=== PATIENT | male | born 1980 | race Caucasian/White ===

== ENCOUNTER 2017-01-12 17:13 | Emergency (ER) | payer OTHER ==
[~2017-01-12] VITALS: Ht 182.9 cm; Wt 102.1 kg
[~2017-01-12 17:13] MED LIST: ACET-704 PO; CEPH-263 PO; CYCL-331 PO; ESOM20CA PO; HYDR-971 PO; KETO10TA PO; MELO15TA23 PO; SULF1TAB23 PO; SULF1TAB24 PO
[2017-01-12 17:29] VITALS: BP 128/89
[2017-01-12] MEDS ORDERED: IBUP800T19 PO (18:06)
--- NOTE | 2017-01-12 18:06 | PHYS DOC ---
Past History Past Medical History: GERD, Other Past Surgical History: Appendectomy, Lumbar Laminectomy, Other Alcohol Use: None Drug Use: None Adult General Chief Complaint Chief Complaint: KNEE INJURY HPI HPI Patient is a 36 year old M who presents with left knee pain. Patient states he was doing dishes and went to turn around and pivoted on his left knee in which he had excruciating pain to the medial side. Patient states is extremely tender to walk on it and it feels loose. Patient denies any significant trauma to the knee. Patient denies any other complaints. Patient has no swelling to the knee. Patient has decreased range of motion secondary to pain. Patient no previous knee injuries. Review of Systems Review of Systems GEN: Denies fevers, chills, sweats HEENT: Denies blurred vision, sore throat CV: Denies chest pain RESP: Denies shortness of air, cough GI: Denies n/v/d NEURO: Denies confusion, dizziness MSK: Left knee pain Allergies Allergies Allergies Coded Allergies Type Severity Reaction Last Updated Verified No Known Drug Allergies 03/03/16 No Physical Exam Physical Exam GEN.: No apparent distress. Alert and oriented. HEENT: Head is normocephalic, atraumatic NECK: Supple. LUNGS: CTAB. HEART: RRR, S1, S2 present. Peripheral pulses intact ABDOMEN: Soft, nontender. Positive bowel sounds. EXTREMITIES: Without any cyanosis. Positive tenderness to palpation over the medial joint space of the left knee, decreased range of motion secondary to pain , crepitus with range of motion NEUROLOGIC: Normal speech, normal tone PSYCHIATRIC: Normal affect, normal mood. SKIN: No ulcerations Current Patient Data Vital Signs Vital Signs Date Time Temp Pulse Resp B/P (MAP) Pulse Ox O2 Delivery O2 Flow Rate FiO2 01/12/17 17:29 98.9 88 20 98 Room Air EKG EKG [] Radiology/Procedures Radiology/Procedures X-ray left knee shows no obvious fracture [] Course & Med Decision Making Course & Med Decision Making Pertinent Labs and Imaging studies reviewed. (See chart for details) ED course: Patient was seen and examined and x-ray of the left knee was ordered 1810: Updated patient on results of the left knee x-ray and recommended he follow-up with PCP for further evaluation and management of his left knee with possible need for an MRI. Discussed with patient the plan to place him in a knee immobilizer and given crutches and have him rest, elevate, ice his left knee. MDM: After reviewing the chart, CC/HPI/PMH, physical exam, [radiological results], I do not believe the patient sustained an obvious fracture to his left knee warranting further workup and/or admission at this time. Patient has a possibility of a ligamentous injury or a cartilaginous tear that will need to be followed by his family doctor as an outpatient. Patient be placed in a knee immobilizer and given crutches and instructions for elevating/ice/compression/ rest of the left knee. Patient is stable for discharge. Post knee immobilizer evaluation shows the patient is neurovascular intact. Additional verbal discharge instructions were provided to the patient and that if symptoms get worse or any new symptoms arise that are worrisome to the patient he is to return to the emergency room immediately [] Dragon Disclaimer Dragon Disclaimer This chart was dictated in whole or in part using Voice Recognition software in a busy, high-work load, and often noisy Emergency Department environment. It may contain unintended and wholly unrecognized errors or omissions. Departure Departure: Impression: Primary Impression: Left knee sprain Disposition: HOME, SELF-CARE Condition: IMPROVED Referrals: PCP,CORINNE (PCP) Patient Instructions: Knee Pain, [id number] Additional Instructions: Please follow up with her family doctor next one to 2 days, he may need an MRI to further evaluate a cartilage or ligament tear Provided prescription for crutches Scripts Ibuprofen (IBUPROFEN) 800 Mg Tablet 1 TAB PO TID, #30 TAB Prov: JOSUÉ MCDONALD DO 01/12/17 Problem Qualifiers Primary Impression: Left knee sprain Encounter type: initial encounter Involved ligament of knee: medial collateral ligament Qualified Codes: S83.412A - Sprain of medial collateral ligament of left knee, initial encounter JOSUÉ MCDONALD DO Jan 12, 2017 18:06
--- NOTE | 2017-01-13 08:12 | RAD ---
3 views left knee radiograph 01/12/2017. Clinical indication: Left knee pain. Comparison: None. Findings: No acute fracture or traumatic malalignment. 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 No joint effusion. Impression: No acute osseous abnormality.
== END 2017-01-12 18:19 | disposition home or self-care (01) ==
LOC: ER 17:13
DX: S83.92XA Sprain of unspecified site of left knee, initial encounter (principal); K21.9 Gastro-esophageal reflux disease without esophagitis; X58.XXXA Exposure to other specified factors, initial encounter; Y93.89 Activity, other specified; Y99.8 Other external cause status; Y92.89 Other specified places as the place of occurrence of the external cause
CPT/HCPCS: 29505; 73562; 99284-25

== ENCOUNTER 2017-03-31 00:43 | Emergency (ER) | payer OTHER ==
[~2017-03-31] VITALS: Ht 182.9 cm; Wt 103.6 kg
[~2017-03-31 00:43] MED LIST changes: +IBUP800T19 PO
[2017-03-31 00:45] VITALS: BP 141/81
[2017-03-31] MEDS ORDERED: MUPI15CR TP (01:09)
[2017-03-31] MEDS ORDERED: HYDR-2758 PO (01:09)
[2017-03-31] MEDS ORDERED: SULF1TAB24 PO (01:09)
--- NOTE | 2017-03-31 01:10 | PHYS DOC ---
Past History Past Medical History: GERD, Other Past Surgical History: Appendectomy, Lumbar Laminectomy, Other Smoking: Cigarettes, Greater than 1 pack/day Alcohol Use: None Drug Use: None Adult General Chief Complaint Chief Complaint: ABSCESS HPI HPI Patient is a pleasant 36-year-old male who was seen and treated for a suspected abscess and cellulitis of his right lower groin. He's been doing well with improvement of his symptoms. He says that this wound opened up several days ago and been draining. He is come in today because he wanted it looked at was concerned that it was still open and draining and causing more pain as he walked. He denies any fever, abdominal pain, penile discharge, scrotal swelling or pain within the scrotum or testicles. Patient denies any localized trauma to the area, denies any nausea, vomiting or diarrhea. Review of Systems Review of Systems Constitutional: Denies fever or chills [] Eyes: Denies change in visual acuity, redness, or eye pain [] HENT: Denies nasal congestion or sore throat [] Respiratory: Denies cough or shortness of breath [] Cardiovascular: No additional information not addressed in HPI [] GI: Denies abdominal pain, nausea, vomiting, bloody stools or diarrhea [] : Denies dysuria or hematuria [] Musculoskeletal: Denies back pain or joint pain [] Integument: Patient does complain of increased redness localized swelling around the area described as abscess. Neurologic: Denies headache, focal weakness or sensory changes [] Allergies Allergies Allergies Coded Allergies Type Severity Reaction Last Updated Verified No Known Drug Allergies 03/03/16 No Physical Exam Physical Exam Vital signs recorded on the chart patient afebrile patient has a mild hypertension. Constitutional: Well developed, well nourished, no acute distress, non-toxic appearance. [] Abdomen: Bowel sounds normal, soft, no tenderness, no masses, no pulsatile masses. exam demonstrates normal external male genitalia. On the right skin crease below the scrotum patient is a very small open draining wound measuring about 0.6 cm. It is not actively draining any purulent discharge. Patient has minimal erythema around the edges of the tissue. There is minimal soft tissue induration.[] Skin: Warm, dry, patient's skin does demonstrate some erythema with no evidence of vesicles or satellite lesions. Brisk capillary refill. Patient scrotum does not demonstrate any signs of foreign years gangrene Extremities: No tenderness, no cyanosis, no clubbing, ROM intact, no edema. [] Neurologic: Alert and oriented X 3, normal motor function, normal sensory function, no focal deficits noted. [] Psychologic: Affect normal, judgement normal, mood normal. [] EKG EKG [] Radiology/Procedures Radiology/Procedures [] Course & Med Decision Making Course & Med Decision Making Pertinent Labs and Imaging studies reviewed. (See chart for details) Impression is a small abscess has ruptured spontaneously. Although there is no clear signs of abscess at this time and nothing noted on physical exam that requires incision and drainage, we talked about wound care in the future patient was placed back on antibiotics because there is some concomitant cellulitis distal to this. Open wound. My thought is that this patient will need to go in to a wound clinic specifically at [facility] to help manage and improve the healing of this wound. [] Dragon Disclaimer Dragon Disclaimer This chart was dictated in whole or in part using Voice Recognition software in a busy, high-work load, and often noisy Emergency Department environment. It may contain unintended and wholly unrecognized errors or omissions. Departure Departure: Impression: Primary Impression: Cellulitis and abscess Disposition: 01 HOME, SELF-CARE Condition: STABLE Referrals: PCP,CORINNE (PCP) Patient Instructions: Cellulitis, Wound Care, [id number] Additional Instructions: My discharge plan Follow up: In addition patient is asked to followup with their primary doctor, within a week for followup examination and to address patient's ongoing medical conditions. Because patient does not have a regular medical doctor, a local physician Resource Sheet will be provided to establish care primary care. Patient is advised that in the Emergency Department primary complaints are addressed and only in light of known signs and symptoms. Patient should return immediately to the emergency department if new signs and symptoms develop or patient's condition worsens in any way. At time of discharge patient was in stable condition and had verbalized understanding of the discharge instructions. Also be given the information about the wound care clinic to help him facilitate treatment of this particular wound. Scripts Hydrocodone Bit/Acetaminophen (HYDROCODONE-APAP 5-325 ) 1 Each Tablet 1 TAB PO PRN Q6HRS Y for PAIN for 3 Days, #10 TAB 0 Refills Prov: TIKA DOUGHERTY MD 03/31/17 Mupirocin Calcium (BACTROBAN) 15 Gm Cream..g. 1 RAFA TP TID, #30 GM Prov: TIKA DOUGHERTY MD 03/31/17 Sulfamethoxazole/Trimethoprim (BACTRIM DS TABLET) 1 Each Tablet 1 TAB PO BID, #20 TAB Prov: TIKA DOUGHERTY MD 03/31/17 TIKA DOUGHERTY MD Mar 31, 2017 01:10
[2017-03-31] MEDS ORDERED: SMZ/TMP 800/160MG TABLET. PO ONE (01:30)
[2017-03-31] MEDS ORDERED: HYDROcodone/APAP 5/325MG 1 TAB TABLET PO ONE (01:30)
== END 2017-03-31 01:19 | disposition home or self-care (01) ==
LOC: ER 00:43
DX: L02.214 Cutaneous abscess of groin (principal); L03.314 Cellulitis of groin; K21.9 Gastro-esophageal reflux disease without esophagitis; F17.210 Nicotine dependence, cigarettes, uncomplicated
CPT/HCPCS: 99283

== ENCOUNTER 2017-05-20 18:53 | Emergency (ER) | payer OTHER ==
[~2017-05-20] VITALS: Ht 182.9 cm; Wt 104.3 kg
[~2017-05-20 18:53] MED LIST changes: +HYDR-2758 PO; +MUPI15CR TP
[2017-05-20] MEDS ORDERED: HYDROcodone/APAP 5/325MG 1 TAB TABLET PO ONE (20:00)
[2017-05-20] MEDS ORDERED: IV NORMAL SALINE 1,000ML 1,000 ML IV ONE (20:00)
[2017-05-20 20:27] LABS: BASO # 0.1 x10^3/uL (0.0-0.2); BASO % 1 % (0-3); EOS # 0.1 x10^3/uL (0.0-0.7); EOS % 0 % (0-3); HEMOGLOBIN 15.4 g/dL (13.0-17.5); LYMPH # 1.1 x10^3/uL (1.0-4.8); LYMPH % 7 % (24-48); MEAN CORPUSCULAR HEMOGLOBIN 32 pg (25-35); MEAN CORPUSCULAR HGB CONC 35 g/dL (31-37); MEAN CORPUSCULAR VOLUME 90 fL (79-100); MONO % 6 % (0-9); NEUT # 14.1 x10^3uL (1.8-7.7); NEUT % 86 % (31-73); PLATELET COUNT 186 x10^3/uL (140-400); RED BLOOD COUNT 4.89 x10^6/uL (4.30-5.70); RED CELL DISTRIBUTION WIDTH 13.2 % (11.5-14.5); WHITE BLOOD COUNT 16.4 x10^3/uL (4.0-11.0)
[2017-05-20 20:35] LABS: CALCIUM 9.4 mg/dL (8.5-10.1); CREATININE 1.2 mg/dL (0.7-1.3); DIRECT BILIRUBIN 0.1 mg/dL (0.0-0.2); GFR 69.3; TOTAL BILIRUBIN 0.2 mg/dL (0.2-1.0); TOTAL PROTEIN 7.5 g/dL (6.4-8.2)
[2017-05-20] MEDS ORDERED: IOHEXOL 300 MG/ML 75 ML VIAL. IV ONE (21:45)
[2017-05-20] MEDS ORDERED: CONTRAST GIVEN MC PRN (21:45)
[2017-05-20 22:22] LABS: % BANDS 4 % (0-9); % EOS 2 % (0-5); % LYMPHS 6 % (24-48); % MONOS 4 % (0-10); % SEGS 84 % (35-66)
[2017-05-20 22:24] LABS: PLT ESTIMATE ADEQUATE (ADEQUATE)
[2017-05-20] MEDS ORDERED: IBUPROFEN 400 MG TABLET. PO ONE (23:15)
--- NOTE | 2017-05-20 23:35 | RAD ---
INDICATION: Omni 300, 75ml IV. Facial pain w/tachycardia. Fever. Hx of laceration to central forehead requiring stitches. No previous exams for comparison COMPARISON: None. TECHNIQUE: Axial CT images obtained through the face with contrast. One or more of the following individualized dose reduction techniques were utilized for this examination: 1. Automated exposure control; 2. Adjustment of the mA and/or kV according to patient size; 3. Use of iterative reconstruction technique. FINDINGS: Mastoid air cells are well aerated. Sphenoid sinus, ethmoid air cells, frontal sinus and maxillary sinuses are well aerated. No definite acute fracture or dislocation. Mild nasal septal bowing to the left. No definite drainable fluid collection within the face. There is some subcutaneous induration of the fat anterior to the frontal region. IMPRESSION: Subcutaneous induration of the fat anterior to the fundal region with swelling in the area. Differential considerations include infectious causes such as cellulitis as well as soft tissue hematoma. No definite drainable component at this time. Electronically signed by: Mike Haynes MD (05/20/2017 11:32 PM) [facility]
[2017-05-20 23:50] VITALS: BP 139/75
[2017-05-20] MEDS ORDERED: IBUP400T18 PO (23:50)
[2017-05-20] MEDS ORDERED: CEPH-263 PO (23:50)
--- NOTE | 2017-05-20 23:50 | PHYS DOC ---
Past History Past Medical History: GERD Past Surgical History: Appendectomy, Lumbar Laminectomy, Other Smoking: Cigarettes, Greater than 1 pack/day Alcohol Use: Occasionally Drug Use: None Adult General Chief Complaint Chief Complaint: FEVER HPI HPI 36-year-old male presenting with left facial pain and reported fevers at home. He denies any new rashes. The pain in his left face is sharp mild intermittent and without alleviating factors. He denies vision changes. He otherwise has been able to eat without difficulty. Review of systems is negative for chest pain shortness of breath neck swelling stridor tongue swelling or trismus. He denies neck stiffness confusion cyanosis lethargy or vision changes. All other review of systems is negative unless otherwise noted in history of present illness. ED course: 36-year-old gentleman presenting with left facial pain. Upon arrival the patient had significant tachycardia but was not febrile in the emergency department. IV established blood work sent. IV saline given. Pain medication administered. On examination the patient's face is not any erythema or rash to speak of. He reports face and the second branch of the trigeminal nerve distribution. Blood work shows leukocytosis of 16,000. Given the patient's tachycardia and leukocytosis with facial pain CT of the maxillofacial region was obtained which showed evidence of cellulitis on CT though clinically on examination the patient states he does not have evidence of cellulitis. Given the tachycardia and a leukocytosis with findings on CT the patient was discharged home with oral Keflex to follow-up with his doctor next 2-3 days. The patient was then discharged home in stable condition to follow up with their primary care physician over the next 2-3 days. They were to return if their symptoms worsened or if they were concerned for any reason. [id number] discharge instructions and return precautions were given. Patient's questions were answered to their satisfaction. Patient is comfortable plan. Review of Systems Review of Systems SEE ABOVE. Current Medications Current Medications Current Medications Medications (Trade) Dose Ordered Sig/Danita Start Time Stop Time Status Last Admin Dose Admin Acetaminophen/ Hydrocodone Bitart (Lortab 5/325) 2 tab 1X ONCE 05/20/17 20:00 05/20/17 20:01 DC 05/20/17 20:03 2 TAB Ibuprofen (Motrin) 400 mg 1X ONCE 05/20/17 23:15 05/20/17 23:36 DC 05/20/17 23:18 400 MG Info (Do NOT chart on this entry -- for MONITORING) 1 each PRN DAILY PRN 05/20/17 21:45 05/22/17 21:44 Iohexol (Omnipaque 300 Mg/ml) 75 ml 1X ONCE 05/20/17 21:45 05/20/17 21:46 DC 05/20/17 21:45 75 ML Sodium Chloride 1,000 ml @ 1,000 mls/hr 1X ONCE 05/20/17 20:00 05/20/17 20:59 DC 05/20/17 20:03 1,000 MLS/HR Allergies Allergies Allergies Coded Allergies Type Severity Reaction Last Updated Verified No Known Drug Allergies 03/03/16 No Physical Exam Physical Exam SEE ABOVE Constitutional: Well developed, well nourished, no acute distress, non-toxic appearance. [] HENT: Normocephalic, atraumatic, bilateral external ears normal, oropharynx moist, no oral exudates, nose normal. []No rashes on the face. Eyes: PERRLA, EOMI, conjunctiva normal, no discharge. [] Neck: Normal range of motion, no tenderness, supple, no stridor. [] Cardiovascular:Heart rate regular rhythm, no murmur [] Lungs & Thorax: Bilateral breath sounds clear to auscultation [] Abdomen: Bowel sounds normal, soft, no tenderness, no masses, no pulsatile masses. [] Skin: Warm, dry, no erythema, no rash. [] Back: No tenderness, no CVA tenderness. [] Extremities: No tenderness, no cyanosis, no clubbing, ROM intact, no edema. [] Neurologic: Alert and oriented X 3, normal motor function, normal sensory function, no focal deficits noted. [] Psychologic: Affect normal, judgement normal, mood normal. [] Current Patient Data Vital Signs Vital Signs Date Time Temp Pulse Resp B/P (MAP) Pulse Ox O2 Delivery O2 Flow Rate FiO2 05/20/17 19:06 99.0 126 20 99 Room Air Lab Results Laboratory Tests Test 05/20/17 19:45 White Blood Count 16.4 x10^3/uL (4.0-11.0) H Red Blood Count 4.89 x10^6/uL (4.30-5.70) Hemoglobin 15.4 g/dL (13.0-17.5) Hematocrit 44.0 % (39.0-53.0) Mean Corpuscular Volume 90 fL (79-100) Mean Corpuscular Hemoglobin 32 pg (25-35) Mean Corpuscular Hemoglobin Concent 35 g/dL (31-37) Red Cell Distribution Width 13.2 % (11.5-14.5) Platelet Count 186 x10^3/uL (140-400) Neutrophils (%) (Auto) 86 % (31-73) H Lymphocytes (%) (Auto) 7 % (24-48) L Monocytes (%) (Auto) 6 % (0-9) Eosinophils (%) (Auto) 0 % (0-3) Basophils (%) (Auto) 1 % (0-3) Neutrophils # (Auto) 14.1 x10^3uL (1.8-7.7) H Lymphocytes # (Auto) 1.1 x10^3/uL (1.0-4.8) Monocytes # (Auto) 1.0 x10^3/uL (0.0-1.1) Eosinophils # (Auto) 0.1 x10^3/uL (0.0-0.7) Basophils # (Auto) 0.1 x10^3/uL (0.0-0.2) Segmented Neutrophils % 84 % (35-66) H Band Neutrophils % 4 % (0-9) Lymphocytes % 6 % (24-48) L Monocytes % 4 % (0-10) Eosinophils % 2 % (0-5) Platelet Estimate Adequate (ADEQUATE) Sodium Level 142 mmol/L (136-145) Potassium Level 4.0 mmol/L (3.5-5.1) Chloride Level 107 mmol/L (98-107) Carbon Dioxide Level 26 mmol/L (21-32) Anion Gap 9 (6-14) Blood Urea Nitrogen 17 mg/dL (8-26) Creatinine 1.2 mg/dL (0.7-1.3) Estimated GFR (Cockcroft-Gault) 69.3 Glucose Level 103 mg/dL (70-99) H Calcium Level 9.4 mg/dL (8.5-10.1) Total Bilirubin 0.2 mg/dL (0.2-1.0) Direct Bilirubin 0.1 mg/dL (0.0-0.2) Aspartate Amino Transferase (AST) 21 U/L (15-37) Alanine Aminotransferase (ALT) 55 U/L (16-63) Alkaline Phosphatase 62 U/L (46-116) Total Protein 7.5 g/dL (6.4-8.2) Albumin 4.0 g/dL (3.4-5.0) EKG EKG [] Radiology/Procedures Radiology/Procedures [] Course & Med Decision Making Course & Med Decision Making Pertinent Labs and Imaging studies reviewed. (See chart for details) [] Dragon Disclaimer Dragon Disclaimer This electronic medical record was generated, in whole or in part, using a voice recognition dictation system. Departure Departure: Impression: Primary Impression: Cellulitis Disposition: HOME, SELF-CARE Condition: STABLE Referrals: JEOVANNY TRAVIS MD (PCP) Patient Instructions: Cellulitis, [id number] Additional Instructions: Thank you for allowing us to participate in your care today. Followup with your primary care physician in 3 days if your symptoms do not improve. Call your Primary Doctor tomorrow and inform them of your visit today. If you do not have a primary care provider you can ask for a list of our primary care providers. Return to the emergency department you have any new or concerning findings. This should be evaluated by the primary care physician and any necessary consulting services for continued management within a few days after discharge. Return to emergency room if you have any new or concerning symptoms including but not limited to fever, chills, nausea, vomiting, intractable pain, any new rashes, chest pain, shortness of air, uncontrolled bleeding, difficulty breathing, and/or vision loss. Scripts Ibuprofen (IBUPROFEN) 400 Mg Tablet 1 TAB PO PRN Q8HRS Y for PAIN, #20 TAB Prov: ABE ARAUJO MD 05/20/17 Cephalexin (KEFLEX) 250 Mg Capsule 1 CAP PO QID, #28 CAP Prov: ABE ARAUJO MD 05/20/17 ABE ARAUJO MD May 20, 2017 23:50
== END 2017-05-20 23:51 | disposition home or self-care (01) ==
LOC: ER 18:53
DX: L03.211 Cellulitis of face (principal); K21.9 Gastro-esophageal reflux disease without esophagitis; F17.210 Nicotine dependence, cigarettes, uncomplicated
CPT/HCPCS: 36415; 70487; 80048; 80076; 85007; 85025; 96360; 96361; 99285; Q9967; J7030

== ENCOUNTER → 2018-05-15 | Outpatient (CLI) | payer OTHER ==
[~2018-05-15] MED LIST changes: +HYDR-2155 PO; -HYDR-2758 PO; +HYDR-3165 PO; -HYDR-971 PO; +IBUP400T18 PO
--- NOTE | 2018-05-15 16:04 | RAD ---
Chest, 2 views, 05/15/2018: HISTORY: Chest pain, shortness of breath Comparison is made to a study from 11/27/2015. The heart size and pulmonary vascularity are normal. There is minimal parenchymal scarring laterally in the right upper chest. No acute infiltrate is seen. There is no evidence of pleural fluid. IMPRESSION: No acute cardiopulmonary abnormality is detected. Electronically signed by: Momo Cox MD (05/15/2018 4:00 PM) [facility]
== END | disposition home or self-care (01) ==
LOC: RAD 11:34
PROVIDERS: ATTEND Internal Medicine Pulmonary Disease
DX: J98.4 Other disorders of lung (principal)
CPT/HCPCS: 71046

== ENCOUNTER 2021-01-29 11:41 | Emergency (ER) | payer OTHER ==
[~2021-01-29] VITALS: Ht 180.3 cm; Wt 108.8 kg
--- NOTE | 2021-01-29 12:18 | PHYS DOC ---
Past History Past Medical History: GERD Past Surgical History: Appendectomy, Lumbar Laminectomy, Other Smoking: Cigarettes, Greater than 1 pack/day Alcohol Use: Rarely Drug Use: None General Adult EDM: Chief Complaint: GROIN PAIN HPI: HPI: 40-year-old male presents with left testicular pain. The patient wears a five- point harness for work. He was working yesterday when his weight was suspended with the harness and it pinched the left testicle into the harness. Patient had pain and continues to have pain this morning. He went to the [facility] clinic and they recommended he come to the emergency room for testicular ultrasound. Patient had one episode of dysuria but his urination afterward has not been painful. He has not noticed any blood. He has no other complaints this time. Review of Systems: Review of Systems: Constitutional: Denies fever or chills Eyes: Denies change in visual acuity HENT: Denies nasal congestion or sore throat Respiratory: Denies cough or shortness of breath Cardiovascular: Denies chest pain or edema GI: Denies abdominal pain, nausea, vomiting, bloody stools or diarrhea : Denies dysuria. Left testicle pain Musculoskeletal: Denies back pain or joint pain Integument: Denies rash Neurologic: Denies headache, focal weakness or sensory changes Endocrine: Denies polyuria or polydipsia Lymphatic: Denies swollen glands Psychiatric: Denies depression or anxiety Allergies: Allergies: Allergies Coded Allergies Type Severity Reaction Last Updated Verified No Known Drug Allergies 01/29/21 No Physical Exam: PE: Constitutional: Well developed, well nourished, obese, no acute distress, non-t oxic appearance. [] HENT: Normocephalic, atraumatic, bilateral external ears normal, oropharynx moist, no oral exudates, nose normal. [] Eyes: PERRLA, EOMI, conjunctiva normal, no discharge. [] Neck: Normal range of motion, no tenderness, supple, no stridor. [] Cardiovascular:Heart rate regular rhythm, no murmur [] Lungs & Thorax: Bilateral breath sounds clear to auscultation [] Abdomen: Bowel sounds normal, soft, no tenderness, no masses, no pulsatile masses. [] Skin: Warm, dry, no erythema, no rash. [] Back: No tenderness, no CVA tenderness. [] Extremities: No tenderness, no cyanosis, no clubbing, ROM intact, no edema. [] Neurologic: Alert and oriented X 3, normal motor function, normal sensory function, no focal deficits noted. [] Psychologic: Affect normal, judgement normal, mood normal. : Circumcised, bilateral descended testicles, left testicular tenderness and diameter greater than right. No ecchymosis. [] Current Patient Data: Vital Signs: Vital Signs Date Time Temp Pulse Resp B/P (MAP) Pulse Ox O2 Delivery O2 Flow Rate FiO2 01/29/21 11:51 97.3 73 16 137/82 96 Room Air EKG: EKG: [] Radiology/Procedures: Radiology/Procedures: [] Impressions: INDICATION: Reason: LT TESTICULAR TRAUMA 01-28-21 / [facility]. Instructions: / History: COMPARISON: None. TECHNIQUE: Grayscale, color and spectral doppler ultrasound images obtained of the scrotum. FINDINGS: Right Testicle: 54 x 34 x 25 mm. Vascular flow is identified. Left Testicle: 56 x 37 x 23 mm. Vascular flow is identified. Small hydroceles. IMPRESSION: * Vascular flow is identified to the bilateral testicles. No evidence of testicular rupture. * Small hydrocele Electronically signed by: Angi Haynes MD (01/29/2021 1:00 PM) [id number] DICTATED AND SIGNED BY: ANGI HAYNES MD DATE: 01/29/21 1258 CC: GEN REID DO; PCP,NO ~MTH0 0 Heart Score: C/O Chest Pain: N/A Risk Factors: Risk Factors: DM, Current or recent (<one month) smoker, HTN, HLP, family history of CAD, obesity. Risk Scores: Score 0 - 3: 2.5% MACE over next 6 weeks - Discharge Home Score 4 - 6: 20.3% MACE over next 6 weeks - Admit for Clinical Observation Score 7 - 10: 72.7% MACE over next 6 weeks - Early Invasive Strategies Course & Med Decision Making: Course & Med Decision Making Pertinent Labs and Imaging studies reviewed. (See chart for details) The patient's ultrasound was negative for torsion or other significant finding except for small hydrocele. I believe his discomfort is just due to contusion. He is stable for discharge at this time. [] Dragon Disclaimer: Dragon Disclaimer: This electronic medical record was generated, in whole or in part, using a voice recognition dictation system. Departure Departure: Impression: Primary Impression: Contusion of testicle Qualified Codes: S30.22XA - Contusion of scrotum and testes, initial encounter Disposition: HOME / SELF CARE / HOMELESS Condition: STABLE Referrals: PCP,NO (PCP) Patient Instructions: Contusion, [id number] GEN REID DO Jan 29, 2021 12:18
--- NOTE | 2021-01-29 13:03 | RAD ---
INDICATION: Reason: LT TESTICULAR TRAUMA 01-28-21 / [facility] Instructions: / History: COMPARISON: None. TECHNIQUE: Grayscale, color and spectral doppler ultrasound images obtained of the scrotum. FINDINGS: Right Testicle: 54 x 34 x 25 mm. Vascular flow is identified. Left Testicle: 56 x 37 x 23 mm. Vascular flow is identified. Small hydroceles. IMPRESSION: * Vascular flow is identified to the bilateral testicles. No evidence of testicular rupture. * Small hydrocele Electronically signed by: Mike Haynes MD (01/29/2021 1:00 PM) [id number]
[2021-01-29 13:20] VITALS: BP 123/81
== END 2021-01-29 13:20 | disposition home or self-care (01) ==
LOC: ER 12:10
DX: S30.22XA Contusion of scrotum and testes, initial encounter (principal); K21.9 Gastro-esophageal reflux disease without esophagitis; F17.210 Nicotine dependence, cigarettes, uncomplicated; X58.XXXA Exposure to other specified factors, initial encounter; Y93.89 Activity, other specified; Y92.89 Other specified places as the place of occurrence of the external cause; Y99.8 Other external cause status
CPT/HCPCS: 76870; 99284